=== PATIENT | male | born 1985 | race Caucasian/White ===

== ENCOUNTER 2016-05-10 07:37 | Emergency (ER) | payer OTHER ==
--- NOTE | 2016-05-10 08:05 | ED CLINICAL REPORT ---
Clinical Report - Physicians/Mid Levels [facility] [address], [place] [address] 05/10/2016 7:38 Patient: KEREN AMOS Time Seen: 07:52; initial patient contact. Arrived- By private vehicle. Historian- patient. HISTORY OF PRESENT ILLNESS Chief Complaint: Injury to left leg. The injury happened about 1 week ago. The patient sustained a puncture wound from a needle. Occurred at home. Patient is experiencing moderate pain. Patient denies injury to the head or neck. REVIEW OF SYSTEMS The patient sustained a laceration. No swelling, suspected foreign body, chills, fever or nausea. No vomiting. All systems otherwise negative, except as recorded above. PAST HISTORY ( SURGERY HX: Hernia repair. Abdominal hernia repair. Tonsillectomy. ( jaw wiring).). Medications: None. Allergies: Penicillin.(nausea). SOCIAL HISTORY Smoker - current status unknown. History of IV drug use: heroin, methamphetamines. Is a recovering addict. PHYSICAL EXAM Appearance: Alert. Oriented X3. No acute distress. CVS: Normal heart rate and rhythm. Heart sounds normal. Respiratory: No respiratory distress. Breath sounds normal. Skin: Skin warm and dry. Extremities: Right leg: moderate erythema and tenderness, mild swelling and multiple puncture wounds located in the medial aspect of mid leg. Neurovascular intact distally. Extremities otherwise negative. Neuro, Vascular and Tendons: Vascular status intact. Sensation intact. Motor intact. Tendon function intact. Gait: Normal gait. Neuro: Oriented X 3. PROGRESS AND PROCEDURES Disposition: Discharged home in good condition. Condition: good. CLINICAL IMPRESSION Cellulitis of the right lower leg. INSTRUCTIONS Your Current Medications: CONTINUE TAKING THE FOLLOWING MEDICATIONS: None*. Prescription Medications: Clindamycin 300 mg: take 1 capsule orally every 6 hours for 7 days. No refill. Follow-up: Screening today revealed the patient's blood pressure to be in the pre-hypertensive range. Follow-up with: [facility], , , [address], , [place], [id number] Follow up in about four days. Call for an appointment. (Electronically signed by Jasbir Barger Dr. 05/10/2016 8:13)
--- NOTE | 2016-05-10 08:05 | ED CLINICAL REPORT ---
Clinical Report - Physicians/Mid Levels [facility] [address], [place] [address] 05/10/2016 7:38 Patient: KEREN AMOS Time Seen: 07:52; initial patient contact. Arrived- By private vehicle. Historian- patient. HISTORY OF PRESENT ILLNESS Chief Complaint: Injury to left leg. The injury happened about 1 week ago. The patient sustained a puncture wound from a needle. Occurred at home. Patient is experiencing moderate pain. Patient denies injury to the head or neck. REVIEW OF SYSTEMS The patient sustained a laceration. No swelling, suspected foreign body, chills, fever or nausea. No vomiting. All systems otherwise negative, except as recorded above. PAST HISTORY ( SURGERY HX: Hernia repair. Abdominal hernia repair. Tonsillectomy. ( jaw wiring).). Medications: None. Allergies: Penicillin.(nausea). SOCIAL HISTORY Smoker - current status unknown. History of IV drug use: heroin, methamphetamines. Is a recovering addict. PHYSICAL EXAM Appearance: Alert. Oriented X3. No acute distress. CVS: Normal heart rate and rhythm. Heart sounds normal. Respiratory: No respiratory distress. Breath sounds normal. Skin: Skin warm and dry. Extremities: Right leg: moderate erythema and tenderness, mild swelling and multiple puncture wounds located in the medial aspect of mid leg. Neurovascular intact distally. Extremities otherwise negative. Neuro, Vascular and Tendons: Vascular status intact. Sensation intact. Motor intact. Tendon function intact. Gait: Normal gait. Neuro: Oriented X 3. PROGRESS AND PROCEDURES Disposition: Discharged home in good condition. Condition: good. CLINICAL IMPRESSION Cellulitis of the right lower leg. INSTRUCTIONS Your Current Medications: CONTINUE TAKING THE FOLLOWING MEDICATIONS: None*. Prescription Medications: Clindamycin 300 mg: take 1 capsule orally every 6 hours for 7 days. No refill. Follow-up: Screening today revealed the patient's blood pressure to be in the pre-hypertensive range. Follow-up with: [facility], , , [address], , [place], [address] Follow up in about four days. Call for an appointment. (Electronically signed by Jasbir Barger Dr. 05/10/2016 8:13)
--- NOTE | 2016-05-10 08:05 | ED ORDER SUMMARY ---
..... Patient: KEREN AMOS OrderSheet [facility] VisitID: [id number] [address] [place] [address] 30y, M Registration Date/Time: 05/10/2016 ORDER SHEET Weight: 68.0 kg (stated) Allergies: Penicillin GENERAL ORDERS: MEDICATION ORDERS: Clindamycin PO 300 mg (NOW) (08:03 05/10/2016 Maikol Sher) (8:05 Parvin George) IV FLUIDS: ORDER SHEET NOTES: [Electronically signed by Jasbir Barger Dr. (08:13 05/10/2016)] [Electronically signed by Leisa Galeano R.N. (08:16 05/10/2016)] [Electronically locked/signed by Leisa Galeano R.N. (08:16 05/10/2016)]
--- NOTE | 2016-05-10 08:05 | ED NURSING NOTES ---
Clinical Report - Nurses [facility] [address] [place] [address] 05/10/2016 7:38 Patient: KEREN AMOS TRIAGE Triage time 07:51. Chief Complaint: SKIN LESION. --08:00 Leisa Galeano R.N. 07:51 05/10/16. BP: 124/79. HR: 93. RR: 18. O2 saturation: 100%. Temp: 98.3 F. Pain level now: 09/03. --08:00 Leisa Galeano R.N. Weight: 68 kg stated. Height/Length: 70 inches Per Patient. BMI: 21.5. --07:56 Leisa Galeano R.N. Medications None. --07:52 Leisa Galeano R.N. Allergies Penicillin.(nausea) --07:52 Leisa Galeano R.N. History Arrived by private vehicle. Historian: patient. Reported as (right calf). This started last night. ( Pt injected methamphetamine into the back of his right calf and had instant pain and swelling that has not subsided. Old wound from previous injection site in same area.). He has had a cough. PAST MEDICAL HX: Immunizations: up-to-date. ( Last tetanus was 2 years ago). SURGERY HX: Hernia repair. Abdominal hernia repair. Tonsillectomy. ( jaw wiring). SOCIAL HX: Smoker- current status unknown. History of IV drug use: heroin, methamphetamines. No alcohol use. SELF HARM ASSESSMENT: A self harm assessment was performed. The patient answered "no" to the question "Do you have thoughts of harming or killing yourself?" and "Are you here because you tried to hurt yourself?". --08:00 Leisa Galeano R.N. PHYSICAL ASSESSMENT GENERAL / NEURO / PSYCH: Alert. The patient does not appear to be in acute distress. Oriented X 4. HEENT: Pupils equal, round and reactive to light. RESPIRATORY: Respirations not labored. Breath sounds within normal limits. CVS: Pulses within normal limits. GI / : Abdomen nontender. SKIN: Multiple skin lesions present- Right calf with swelling, redness and 3 lesions less than 1cm. Entire area of redness approx 6cm. --08:01 Leisa Galeano R.N. NURSING PROGRESS NOTES Patient gowned. Reassurance given. Call light placed in reach. --08:01 Leisa Galeano R.N. 08:05 05/10/2016 Clindamycin PO Capsules 300 mg given. --08:05 Leisa Galeano R.N. ( pt given crackers and juice with po meds.). --08:05 Leisa Galeano R.N. DISPOSITION / DISCHARGE Condition at departure: unchanged and stable. No learning barriers present. Discharge instructions provided and reviewed with the patient. Reviewed medication(s) side effects information. Prescription(s) given to the patient. Reviewed referral to a primary care physician. Patient verbalized understanding. The patient was discharged by the physician. He was discharged home. He left the Emergency Department ambulatory and via private vehicle. Patient driving. --08:15 Leisa Galeano R.N. 08:14 05/10/16. BP: 124/79. HR: 93. RR: 18. O2 saturation: 100%. Temp: 98.3 F. Pain level now: 09/03. --08:15 Leisa Galeano R.N. Departure time: 809. --08:15 Leisa Galeano R.N. Locked/Released at 05/10/2016 8:16 by Leisa Galeano R.N.
--- NOTE | 2016-05-10 08:05 | ED ORDER SUMMARY ---
..... Patient: KEREN AMOS OrderSheet [facility] VisitID: [id number] [address] [place] [address] 30y, M Registration Date/Time: 05/10/2016 ORDER SHEET Weight: 68.0 kg (stated) Allergies: Penicillin GENERAL ORDERS: MEDICATION ORDERS: Clindamycin PO 300 mg (NOW) (08:03 05/10/2016 Maikol Sher) (8:05 Parvin George) IV FLUIDS: ORDER SHEET NOTES: [Electronically signed by Jasbir Barger Dr. (08:13 05/10/2016)] [Electronically signed by Leisa Galeano R.N. (08:16 05/10/2016)] [Electronically locked/signed by Leisa Galeano R.N. (08:16 05/10/2016)]
--- NOTE | 2016-05-10 08:05 | ED NURSING NOTES ---
Clinical Report - Nurses [facility] [address] [place] [address] 05/10/2016 7:38 Patient: KEREN AMOS TRIAGE Triage time 07:51. Chief Complaint: SKIN LESION. --08:00 Leisa Galeano R.N. 07:51 05/10/16. BP: 124/79. HR: 93. RR: 18. O2 saturation: 100%. Temp: 98.3 F. Pain level now: 09/03. --08:00 Leisa Galeano R.N. Weight: 68 kg stated. Height/Length: 70 inches Per Patient. BMI: 21.5. --07:56 Leisa Galeano R.N. Medications None. --07:52 Leisa Galeano R.N. Allergies Penicillin.(nausea) --07:52 Leisa Galeano R.N. History Arrived by private vehicle. Historian: patient. Reported as (right calf). This started last night. ( Pt injected methamphetamine into the back of his right calf and had instant pain and swelling that has not subsided. Old wound from previous injection site in same area.). He has had a cough. PAST MEDICAL HX: Immunizations: up-to-date. ( Last tetanus was 2 years ago). SURGERY HX: Hernia repair. Abdominal hernia repair. Tonsillectomy. ( jaw wiring). SOCIAL HX: Smoker- current status unknown. History of IV drug use: heroin, methamphetamines. No alcohol use. SELF HARM ASSESSMENT: A self harm assessment was performed. The patient answered "no" to the question "Do you have thoughts of harming or killing yourself?" and "Are you here because you tried to hurt yourself?". --08:00 Leisa Galeano R.N. PHYSICAL ASSESSMENT GENERAL / NEURO / PSYCH: Alert. The patient does not appear to be in acute distress. Oriented X 4. HEENT: Pupils equal, round and reactive to light. RESPIRATORY: Respirations not labored. Breath sounds within normal limits. CVS: Pulses within normal limits. GI / : Abdomen nontender. SKIN: Multiple skin lesions present- Right calf with swelling, redness and 3 lesions less than 1cm. Entire area of redness approx 6cm. --08:01 Leisa Galeano R.N. NURSING PROGRESS NOTES Patient gowned. Reassurance given. Call light placed in reach. --08:01 Leisa Galeano R.N. 08:05 05/10/2016 Clindamycin PO Capsules 300 mg given. --08:05 Leisa Galeano R.N. ( pt given crackers and juice with po meds.). --08:05 Leisa Galeano R.N. DISPOSITION / DISCHARGE Condition at departure: unchanged and stable. No learning barriers present. Discharge instructions provided and reviewed with the patient. Reviewed medication(s) side effects information. Prescription(s) given to the patient. Reviewed referral to a primary care physician. Patient verbalized understanding. The patient was discharged by the physician. He was discharged home. He left the Emergency Department ambulatory and via private vehicle. Patient driving. --08:15 Leisa Galeano R.N. 08:14 05/10/16. BP: 124/79. HR: 93. RR: 18. O2 saturation: 100%. Temp: 98.3 F. Pain level now: 09/03. --08:15 Leisa Galeano R.N. Departure time: 809. --08:15 Leisa Galeano R.N. Locked/Released at 05/10/2016 8:16 by Leisa Galeano R.N.
--- NOTE | 2016-05-10 08:17 | ED DISCHARGE INSTRUCTIONS ---
Patient: KEREN AMOS General Instructions [facility] VisitID: [id number] [address] [place] [address] 30y, M Registration Date/Time: 05/10/2016 Cellulitis of the right lower leg. INSTRUCTIONS Your Current Medications: CONTINUE TAKING THE FOLLOWING MEDICATIONS: None*. Prescription Medications: Clindamycin 300 mg: take 1 capsule orally every 6 hours for 7 days. No refill. Follow-up: Screening today revealed the patient's blood pressure to be in the pre-hypertensive range. Follow-up with: [facility], , , [address], , [place], [address] Follow up in about four days. Call for an appointment. ADDITIONAL INFORMATION Cellulitis You have an infection of the skin known as cellulitis. This usually starts with a scrape, cut, insect bite, blister or other opening in the skin which becomes infected. This is a serious condition. It must be watched closely to be sure the infection is not spreading. With antibiotic treatment, the size of the red area will gradually shrink in size until the skin returns to normal. This will take 7-10 days. The red area should never increase in size once the antibiotic medicine has been started. Occasionally, an infection will be resistant to one antibiotic and another one will have to be used. Home Care: 1) Limit the use of the affected part, since excess movement can cause the infection to spread. 2) If the infection is on your leg, walk as little as possible during the first few days of the treatment. Keep your leg elevated while sitting. This will reduce swelling. 3) Take all of the antibiotic medicine exactly as directed until it is gone. Be careful not to miss any doses, especially during the first seven days. Follow Up with your doctor or this facility as directed. Check the infected area daily for the warning signs listed below. Get Prompt Medical Attention if any of the following occur: -- Spreading area of redness -- Increasing swelling or pain -- Appearance of pus or drainage -- Fever over 100.4 F (38.0 C) oral, or over 101.4 F (38.6 C) rectal, after two days on antibiotics Clindamycin Hydrochloride Oral capsule What is this medicine? CLINDAMYCIN (ANTONINA Baum) is a lincosamide antibiotic. It is used to treat certain kinds of bacterial infections. It will not work for colds, flu, or other viral infections. How should I use this medicine? Take this medicine by mouth with a full glass of water. Follow the directions on the prescription label. You can take this medicine with food or on an empty stomach. If the medicine upsets your stomach, take it with food. Take your medicine at regular intervals. Do not take your medicine more often than directed. Take all of your medicine as directed even if you think your are better. Do not skip doses or stop your medicine early. Talk to your construction laborer regarding the use of this medicine in children. Special care may be needed. What side effects may I notice from receiving this medicine? Side effects that you should report to your doctor or health social worker palliative care as soon as possible: allergic reactions like skin rash, itching or hives, swelling of the face, lips, or tongue dark urine pain on swallowing redness, blistering, peeling or loosening of the skin, including inside the mouth unusual bleeding or bruising unusually weak or tired yellowing of eyes or skin Side effects that usually do not require medical attention (report to your doctor or health social worker palliative care if they continue or are bothersome): diarrhea itching in the rectal or genital area joint pain nausea, vomiting stomach pain What may interact with this medicine? chloramphenicol erythromycin kaolin products What if I miss a dose? If you miss a dose, take it as soon as you can. If it is almost time for your next dose, take only that dose. Do not take double or extra doses. Where should I keep my medicine? Keep out of the reach of children. Store at room temperature between 20 and 25 degrees C (68 and 77 degrees F). Throw away any unused medicine after the expiration date. What should I tell my health care provider before I take this medicine? They need to know if you have any of these conditions: kidney disease liver disease stomach problems like colitis an unusual or allergic reaction to clindamycin, lincomycin, or other medicines, foods, dyes like tartrazine or preservatives or trying to get breast-feeding What should I watch for while using this medicine? Tell your doctor or healthcare professional if your symptoms do not start to get better or if they get worse. Do not treat diarrhea with over the counter products. Contact your doctor if you have diarrhea that lasts more than 2 days or if it is severe and watery. You have been given the following additional information: Cellulitis Clindamycin Hydrochloride Oral capsule (Electronically signed by Jasbir Barger Dr. 05/10/2016 8:13)
--- NOTE | 2016-05-10 08:17 | ED MAR SUMMARY ---
..... Medication Administration Record [facility] [address] [place] [address] Patient: KEREN AMOS Visit ID: [id number] 30y, M Weight: 68.0 kg Height/Length: 70 in BMI: 21.5 ALLERGIES: Penicillin Given 08:05 05/10/2016 Leisa Galeano R.N. Medication Administered: CLINDAMYCIN [PO], Dose: 300 mg Capsules PO. Medication Ordered: Clindamycin PO 300 mg (NOW).
--- NOTE | 2016-05-10 08:17 | ED MED RECONCILIATION SUMMARY ---
Patient: KEREN AMOS Medication Reconciliation Report [facility] VisitID: [id number] [address] [place] [address] 30y, M Registration Date/Time: 05/10/2016 Weight: 68.0 kg Height/Length: 70 in. BMI: 21.5 ALLERGIES: Penicillin The patient's Home Medications are listed below: NONE. The source(s) of the original Home Medication information: Not obtained. The following Medications were given to the patient in the Emergency Department: Clindamycin [PO] PO 300 mg, administered: 05/10/2016 8:05:00 AM The following Medications were prescribed to the patient: Clindamycin 300 mg: take 1 capsule orally every 6 hours for 7 days. No refill. -- Jasbir Barger Dr.
--- NOTE | 2016-05-10 08:17 | ED MED RECONCILIATION SUMMARY ---
Patient: KEREN AMOS Medication Reconciliation Report [facility] VisitID: [id number] [address] [place] [address] 30y, M Registration Date/Time: 05/10/2016 Weight: 68.0 kg Height/Length: 70 in. BMI: 21.5 ALLERGIES: Penicillin The patient's Home Medications are listed below: NONE. The source(s) of the original Home Medication information: Not obtained. The following Medications were given to the patient in the Emergency Department: Clindamycin [PO] PO 300 mg, administered: 05/10/2016 8:05:00 AM The following Medications were prescribed to the patient: Clindamycin 300 mg: take 1 capsule orally every 6 hours for 7 days. No refill. -- Jasbir Barger Dr.
--- NOTE | 2016-05-10 08:17 | ED MAR SUMMARY ---
..... Medication Administration Record [facility] [address] [place] [address] Patient: KEREN AMOS Visit ID: [id number] 30y, M Weight: 68.0 kg Height/Length: 70 in BMI: 21.5 ALLERGIES: Penicillin Given 08:05 05/10/2016 Leisa Galeano R.N. Medication Administered: CLINDAMYCIN [PO], Dose: 300 mg Capsules PO. Medication Ordered: Clindamycin PO 300 mg (NOW).
--- NOTE | 2016-05-10 08:17 | ED DISCHARGE INSTRUCTIONS ---
Patient: KEREN AMOS General Instructions [facility] VisitID: [id number] [address] [place] [address] 30y, M Registration Date/Time: 05/10/2016 Cellulitis of the right lower leg. INSTRUCTIONS Your Current Medications: CONTINUE TAKING THE FOLLOWING MEDICATIONS: None*. Prescription Medications: Clindamycin 300 mg: take 1 capsule orally every 6 hours for 7 days. No refill. Follow-up: Screening today revealed the patient's blood pressure to be in the pre-hypertensive range. Follow-up with: [facility], , , [address], , [place], [address] Follow up in about four days. Call for an appointment. ADDITIONAL INFORMATION Cellulitis You have an infection of the skin known as cellulitis. This usually starts with a scrape, cut, insect bite, blister or other opening in the skin which becomes infected. This is a serious condition. It must be watched closely to be sure the infection is not spreading. With antibiotic treatment, the size of the red area will gradually shrink in size until the skin returns to normal. This will take 7-10 days. The red area should never increase in size once the antibiotic medicine has been started. Occasionally, an infection will be resistant to one antibiotic and another one will have to be used. Home Care: 1) Limit the use of the affected part, since excess movement can cause the infection to spread. 2) If the infection is on your leg, walk as little as possible during the first few days of the treatment. Keep your leg elevated while sitting. This will reduce swelling. 3) Take all of the antibiotic medicine exactly as directed until it is gone. Be careful not to miss any doses, especially during the first seven days. Follow Up with your doctor or this facility as directed. Check the infected area daily for the warning signs listed below. Get Prompt Medical Attention if any of the following occur: -- Spreading area of redness -- Increasing swelling or pain -- Appearance of pus or drainage -- Fever over 100.4 F (38.0 C) oral, or over 101.4 F (38.6 C) rectal, after two days on antibiotics Clindamycin Hydrochloride Oral capsule What is this medicine? CLINDAMYCIN (ANTONINA Baum) is a lincosamide antibiotic. It is used to treat certain kinds of bacterial infections. It will not work for colds, flu, or other viral infections. How should I use this medicine? Take this medicine by mouth with a full glass of water. Follow the directions on the prescription label. You can take this medicine with food or on an empty stomach. If the medicine upsets your stomach, take it with food. Take your medicine at regular intervals. Do not take your medicine more often than directed. Take all of your medicine as directed even if you think your are better. Do not skip doses or stop your medicine early. Talk to your civil engineering professor regarding the use of this medicine in children. Special care may be needed. What side effects may I notice from receiving this medicine? Side effects that you should report to your doctor or health medicare coordinator as soon as possible: allergic reactions like skin rash, itching or hives, swelling of the face, lips, or tongue dark urine pain on swallowing redness, blistering, peeling or loosening of the skin, including inside the mouth unusual bleeding or bruising unusually weak or tired yellowing of eyes or skin Side effects that usually do not require medical attention (report to your doctor or health medicare coordinator if they continue or are bothersome): diarrhea itching in the rectal or genital area joint pain nausea, vomiting stomach pain What may interact with this medicine? chloramphenicol erythromycin kaolin products What if I miss a dose? If you miss a dose, take it as soon as you can. If it is almost time for your next dose, take only that dose. Do not take double or extra doses. Where should I keep my medicine? Keep out of the reach of children. Store at room temperature between 20 and 25 degrees C (68 and 77 degrees F). Throw away any unused medicine after the expiration date. What should I tell my health care provider before I take this medicine? They need to know if you have any of these conditions: kidney disease liver disease stomach problems like colitis an unusual or allergic reaction to clindamycin, lincomycin, or other medicines, foods, dyes like tartrazine or preservatives or trying to get breast-feeding What should I watch for while using this medicine? Tell your doctor or healthcare professional if your symptoms do not start to get better or if they get worse. Do not treat diarrhea with over the counter products. Contact your doctor if you have diarrhea that lasts more than 2 days or if it is severe and watery. You have been given the following additional information: Cellulitis Clindamycin Hydrochloride Oral capsule (Electronically signed by Jasbir Barger Dr. 05/10/2016 8:13)
== END 2016-05-10 08:10 | disposition home or self-care (01) ==
LOC: ED SRH 07:37
DX: L03.115 Cellulitis of right lower limb (principal); W27.8XXA Contact with other nonpowered hand tool, initial encounter; Y92.009 Unspecified place in unspecified non-institutional (private) residence as the place of occurrence of the external cause; Y99.9 Unspecified external cause status; Z88.0 Allergy status to penicillin